=== PATIENT | male | born 1960 | race African-American/Black ===

== ENCOUNTER 2020-07-16 04:22 | Day surgery (SDC) | payer OTHER ==
[2020-07-16 07:11] VITALS: BMI 36.8
[2020-07-16] MEDS ORDERED: MIDAZOLAM HCL 2 MG/2 ML SINGLE DOSE VIAL ONE ×2 (07:48→08:23)
[2020-07-16] MEDS ORDERED: KETOROLAC TROMETHAMINE 30 MG/1 ML VIAL ONE (07:59)
[2020-07-16] MEDS ORDERED: ACETAMINOPHEN 325 MG TABLET (FP) PO PRN (12:46)
[2020-07-16] MEDS ORDERED: ONDANSETRON 4 MG/2 ML VIAL IVPUSH PRN (12:46)
[2020-07-16] MEDS ORDERED: LACTATED RINGERS SOLUTION 1,000 ML IV SCH (13:00)
[2020-07-16 14:23] VITALS: BP 119/64; PULSE 85; TEMP 97.8
== END 2020-07-16 12:25 | disposition home or self-care (01) ==
LOC: JASU-SURG 04:22
PROVIDERS: ATTEND Urology
PROC: 0TF4XZZ Fragmentation in Left Kidney Pelvis, External Approach (ICD-10-PCS; principal; 2020-07-16 08:00)
DX: N20.0 Calculus of kidney (principal)
CPT/HCPCS: 36415; 84132